=== PATIENT | female | born 1970 | race Caucasian/White ===

== ENCOUNTER 2017-05-31 05:30 | Day surgery (SDC) | payer OTHER ==
[~2017-05-31] VITALS: Ht 154.9 cm; Wt 63.5 kg
[2017-05-31] MEDS ORDERED: CEFAZOLIN SOD 1 GM in D5W 50 ML IV ONE (07:00)
[2017-05-31] MEDS ORDERED: GLYCOPYRROLATE 0.2 MG/ML VIAL IJ ONE (08:16)
[2017-05-31] MEDS ORDERED: SEVOFLURANE 15 MIN GAS INH ONE (08:16)
[2017-05-31] MEDS ORDERED: DEXTROSE 50% JECT 50 ML DISP.SYRIN IVP ONE (08:16)
[2017-05-31] MEDS ORDERED: MORPHINE SULFATE 10MG/10ML PF AMP EP ONE (08:16)
[2017-05-31] MEDS ORDERED: MIDAZOLAM HCL 5 MG/5 ML VIAL IVP ONE (08:16)
[2017-05-31] MEDS ORDERED: fentaNYL CITRATE/PF 100 MCG/2 ML AMP IVP ONE (08:16)
[2017-05-31] MEDS ORDERED: METOCLOPRAMIDE HCL 10 MG/2 ML VIAL IVP ONE (08:16)
[2017-05-31] MEDS ORDERED: PROPOFOL 200MG/ 20ML VIAL (DIPRIVAN) IV ONE (08:16)
[2017-05-31] MEDS ORDERED: DEXAMETHASONE SOD PHOSPHATE 4 MG/ML VIAL IVP ONE (08:16)
[2017-05-31] MEDS ORDERED: MORPHINE SULFATE 10 MG/ML VIAL IVP ONE (08:16)
[2017-05-31] MEDS ORDERED: LR 1,000 ML IV ONE (09:41)
[2017-05-31] MEDS ORDERED: KETOROLAC TROMETHAMINE 30 MG VIAL IM PRN (09:45)
[2017-05-31] MEDS ORDERED: NALBUPHINE HCL 10 MG/ML AMP IVP PRN (09:45)
[2017-05-31] MEDS ORDERED: DIPHENHYDRAMINE INJ 50 MG/ML VIAL IVP PRN (09:45)
[2017-05-31] MEDS ORDERED: ONDANSETRON HCL 4 MG/2 ML VIAL IVP PRN ×3 (09:45→15:00)
[2017-05-31] MEDS ORDERED: ePHEDrine sulfate 50 MG/ML VIAL IVP PRN (09:45)
[2017-05-31] MEDS ORDERED: NALOXONE HCL 0.4 MG/ML AMP (NARCAN) IVP PRN (09:45)
[2017-05-31] MEDS ORDERED: fentaNYL CITRATE/PF 100 MCG/2 ML AMP IVP PRN (09:45)
[2017-05-31 13:22] VITALS: BP_SYST 127
[2017-05-31] MEDS ORDERED: HYDROcodone/ACETAMIN 5-325 MG TAB (NORCO/ VICODIN) PO PRN (15:00)
[2017-05-31] MEDS ORDERED: OXYCODONE/ACETAMINOPHEN 5-325 TABLET PO PRN ×2 (15:00)
== END 2017-05-31 16:20 | disposition home or self-care (01) ==
LOC: SDS 05:30 → SMU 05:30 → SDS 16:20
PROVIDERS: ATTEND Specialist
DX: D25.9 Leiomyoma of uterus, unspecified (principal); N81.10 Cystocele, unspecified; N81.4 Uterovaginal prolapse, unspecified; N36.8 Other specified disorders of urethra; N39.3 Stress incontinence (female) (male)
CPT/HCPCS: 52000; 57240; 58542; 88307; C1727; J0690; J1100; J2250; J2270; J2274; J2704; J2765; J3010; J3490; J7060; J7120; E0190

== ENCOUNTER 2019-04-23 21:20 | Inpatient (IN) | payer OTHER ==
[~2019-04-23] VITALS: Ht 157.5 cm; Wt 73.1 kg
[2019-04-23 21:37] VITALS: BP_SYST 123
[2019-04-23 22:07] LABS: BASOPHILS # (AUTO) 0.1 K/uL (0.0-0.2); BASOPHILS % (AUTO) 0.2 % (0.0-2.0); HEMOGLOBIN 14.2 g/dL (12.0-16.0); LYMPHOCYTES # (AUTO) 0.8 K/uL (1.0-5.5); LYMPHOCYTES % (AUTO) 3.3 % (20.5-51.5); MEAN CORPUSCULAR HEMOGLOBIN 28 pg (27-31); MEAN CORPUSCULAR HGB CONC 34 % (32-36); MEAN CORPUSCULAR VOLUME 83 fL (79.0-98.0); MONOCYTES % (AUTO) 4.4 % (1.7-9.3); NEUTROPHILS # (AUTO) 21.3 K/uL (1.8-7.7); NEUTROPHILS % (AUTO) 92.1 % (40.0-70.0); PLATELET COUNT (AUTO) 352 K/uL (130-430); RED BLOOD CELL COUNT(AUTO) 5.03 MIL/uL (4.2-6.2); RED CELL DISTRIBUTION WIDTH 13.2 % (9.0-15.0); WHITE BLOOD COUNT (AUTO) 23.1 K/uL (4.8-10.8)
[2019-04-23 22:24] LABS: ALBUMIN 3.6 g/dL (3.4-4.8); CALCIUM 9.1 mg/dL (8.4-11.0); CREATININE 0.93 mg/dL (0.55-1.30); TOTAL BILIRUBIN 1.2 mg/dL (0.0-1.0)
[2019-04-23 22:49] LABS: BILIRUBIN,URINE 1+ (NEGATIVE); BLOOD, URINE NEGATIVE (NEGATIVE); CLARITY/URINE CLEAR (CLEAR); COLOR,URINE YELLOW (YELLOW); GLUCOSE,URINE NEGATIVE (NEGATIVE); KETONES,URINE 1+ (NEGATIVE); LEUKOCYTE ESTERASE ,URINE NEGATIVE (NEGATIVE); NITRITE, URINE NEGATIVE (NEGATIVE); PH,URINE 5.5 (5.0-8.0); PROTEIN URINE TRACE (NEGATIVE); UROBILINOGEN,URINE 0.2 (0.2-1.0)
[2019-04-23 22:57] LABS: BACTERIA,URINE FEW /HPF (None Seen); RBC,URINE 0-3 /HPF (0-3); WBC,URINE 0-3 /HPF (0-3)
[2019-04-23] MEDS ORDERED: NACL 0.9% 1,000 ML IV ONE (23:00)
[2019-04-23] MEDS ORDERED: MORPHINE 4 MG/ML INJ. SYRINGE IVP ONE (23:00)
[2019-04-23] MEDS ORDERED: PIPERACILLIN/TAZO 3.375 GM in NS 50 ML IV ONE (23:00)
[2019-04-23] MEDS ORDERED: ONDANSETRON HCL 4 MG/2 ML VIAL IVP ONE (23:00)
[2019-04-23] MEDS ORDERED: PIPERACILLIN/TAZOBACTAM 3.375 GM/VIAL (ZOSYN) IV ONE (23:10)
[2019-04-24] MEDS ORDERED: KETOROLAC TROMETHAMINE 30 MG VIAL IVP ONE (00:30)
[2019-04-24] MEDS ORDERED: ONDANSETRON HCL 4 MG/2 ML VIAL IVP PRN (00:45)
[2019-04-24 01:35] VITALS: BP_SYST 100
[2019-04-24] MEDS ORDERED: PIPERACILLIN/TAZOBACTAM 4.5 GM/VIAL (ZOSYN) IV ONE (02:17)
[2019-04-24] MEDS ORDERED: KCL 20 mEq in D5/0.45NS 1000mL 1,000 ML IV ONE (02:17)
[2019-04-24] MEDS: KCL 20 mEq in D5/0.45NS 1000mL 1,000 ML IV SCH ×2 (02:19→13:45)
[2019-04-24] MEDS ORDERED: PIPERACILLIN/TAZO 4.5 GM in NS 100 ML IV SCH (06:00)
[2019-04-24 06:35] LABS: PROTHROMBIN TIME 10.4 SECS (9.5-12.5)
[2019-04-24 08:23] VITALS: BP_SYST 92
[2019-04-24 11:33] VITALS: BP_SYST 106
[2019-04-24] MEDS ORDERED: LR 1,000 ML IV.SOLN IV ONE (13:05)
[2019-04-24] MEDS ORDERED: MIDAZOLAM HCL 5 MG/5 ML VIAL IVP ONE (13:05)
[2019-04-24] MEDS ORDERED: fentaNYL CITRATE 250 MCG/5 ML AMP IV ONE (13:05)
[2019-04-24] MEDS ORDERED: PROPOFOL 200MG/ 20ML VIAL (DIPRIVAN) IV ONE (13:05)
[2019-04-24] MEDS ORDERED: ONDANSETRON HCL 4 MG/2 ML VIAL IVP ONE (13:05)
[2019-04-24] MEDS ORDERED: ROCURONIUM BROMIDE 10 MG/ML (ZEMURON) IV ONE (13:05)
[2019-04-24] MEDS ORDERED: NEOSTIGMINE METHYLSULFATE 1 MG/ML, 10 ML VIAL IVP ONE (13:05)
[2019-04-24] MEDS ORDERED: SEVOFLURANE 15 MIN GAS INH ONE (13:05)
[2019-04-24] MEDS ORDERED: GLYCOPYRROLATE 0.2 MG/ML VIAL IJ ONE (13:05)
[2019-04-24] MEDS ORDERED: NS IRRIG SOLN 1000 ML IR ONE (13:05)
[2019-04-24] MEDS ORDERED: POLYMYXIN 500,000/BACIT.10,000 UNITS in NS IRR 1 L IR ONE (13:51)
[2019-04-24] MEDS ORDERED: BUPIVACAINE LIPOSOME/PF 266 MG/20 ML VIAL INFIL ONE (13:56)
[2019-04-24] MEDS ORDERED: LR 1,000 ML IV SCH (13:59)
[2019-04-24] MEDS: PIPERACILLIN/TAZO 4.5 GM in D5W 100 ML IV SCH ×2 (14:00→21:27)
[2019-04-24] MEDS ORDERED: HYDROmorphone 1 MG INJ. 1 MG/ML AMPUL IVP PRN ×2 (14:00)
[2019-04-24] MEDS ORDERED: METOCLOPRAMIDE HCL 10 MG/2 ML VIAL IVP PRN (14:00)
[2019-04-24] MEDS ORDERED: HYDROmorphone 2 MG/ML VIAL IVP PRN (14:00)
[2019-04-24] MEDS ORDERED: ALBUTEROL SULFATE 0.083% 2.5 MG/3 ML VIAL.NEB INH ONE ×2 (15:45→15:49)
[2019-04-24] MEDS: MORPHINE 4 MG/ML INJ. SYRINGE IVP PRN (18:20)
[2019-04-24 20:00] VITALS: BP_SYST 118
[2019-04-25 00:22] VITALS: BP_SYST 100
[2019-04-25] MEDS: KCL 20 mEq in D5/0.45NS 1000mL 1,000 ML IV SCH ×2 (06:12→13:46)
[2019-04-25] MEDS: PIPERACILLIN/TAZO 4.5 GM in D5W 100 ML IV SCH ×3 (06:12→21:14)
[2019-04-25 08:26] VITALS: BP_SYST 107
[2019-04-25 12:00] VITALS: BP_SYST 124
[2019-04-25 18:00] VITALS: BP_SYST 122
[2019-04-25 19:45] VITALS: BP_SYST 133
[2019-04-25] MEDS: MORPHINE 4 MG/ML INJ. SYRINGE IVP PRN (21:14)
[2019-04-26 00:33] VITALS: BP_SYST 107
[2019-04-26] MEDS: KCL 20 mEq in D5/0.45NS 1000mL 1,000 ML IV SCH (03:15)
[2019-04-26] MEDS: PIPERACILLIN/TAZO 4.5 GM in D5W 100 ML IV SCH (05:12)
[2019-04-26 06:40] LABS: BASOPHILS % (AUTO) 0.4 % (0.0-2.0); EOSINOPHILS # (AUTO) 0.6 K/uL (0.0-0.4); HEMATOCRIT 38.5 % (36-48); HEMOGLOBIN 12.9 g/dL (12.0-16.0); LYMPHOCYTES # (AUTO) 1.8 K/uL (1.0-5.5); MEAN CORPUSCULAR HEMOGLOBIN 28 pg (27-31); MEAN CORPUSCULAR HGB CONC 34 % (32-36); MEAN CORPUSCULAR VOLUME 85 fL (79.0-98.0); MONOCYTES # (AUTO) 0.6 K/uL (0.0-1.0); MONOCYTES % (AUTO) 6.3 % (1.7-9.3); NEUTROPHILS # (AUTO) 6.7 K/uL (1.8-7.7); NEUTROPHILS % (AUTO) 69.3 % (40.0-70.0); PLATELET COUNT (AUTO) 306 K/uL (130-430); RED BLOOD CELL COUNT(AUTO) 4.56 MIL/uL (4.2-6.2); RED CELL DISTRIBUTION WIDTH 13.3 % (9.0-15.0); WHITE BLOOD COUNT (AUTO) 9.7 K/uL (4.8-10.8)
[2019-04-26 06:43] LABS: CREATININE 0.79 mg/dL (0.55-1.30); POTASSIUM 3.8 mmol/L (3.5-5.1)
[2019-04-26 08:00] VITALS: BP_SYST 130
[2019-04-26] MEDS ORDERED: AMOX-423 PO (10:48)
[2019-04-26 10:52] VITALS: BP_SYST 118
== END 2019-04-26 11:20 | disposition home or self-care (01) | DRG 343 ==
LOC: SED 21:20 → SMU 04-24 00:42
PROVIDERS: ADMIT Surgery; ATTEND Surgery
PROC: 0DTJ0ZZ Resection of Appendix, Open Approach (ICD-10-PCS; principal; 2019-04-24 12:30)
DX: K35.80 Unspecified acute appendicitis (principal); Z90.710 Acquired absence of both cervix and uterus; Z98.891 History of uterine scar from previous surgery
CPT/HCPCS: 36415; 80048; 80053; 81000-TC; 83605; 83690-TC; 85025; 85610-TC; 85730-TC; 86886; 86900; 86901; 87040-TC; 87081; 88304; 93005; 94010; 94640; 96361; 96365; 96375; C9290; J1885; J2250; J2270; J2405; J2543; J2704; J2710; J3010; J3490; J7060; J7120; J7613